=== PATIENT | male | born 1940 | race Caucasian/White ===

== ENCOUNTER 2019-08-12 09:16 | Emergency (ER) | payer MEDICARE, OTHER, SELFPAY ==
[2019-08-12 09:26] VITALS: BP 82/59; PULSE 70; RESP 22; TEMP 36.6; O2SAT 96
--- NOTE | 2019-08-12 09:55 | ED.GENADUL_ITS ---
Discharge Plan Disposition Patient Disposition: HOME Condition: Stable Discharge Details Chief Complaint: Sorethroat Clinical Impression: Viral syndrome, Sore throat Primary Care Provider: Padmini Pizarro ED Provider: Jennifer Glaser Home Meds and New Rx's Prescriptions: No Action multivitamin Tablet 1 tab PO DAILY RF: 0 atorvastatin 40 mg Tablet 40 mg PO DAILY RF: 0 ibuprofen 800 mg Tablet 800 mg PO TID RF: 0 isosorbide mononitrate 30 mg Tablet Extended Release 24 Hr 30 mg PO DAILY RF: 0 aspirin [Aspir-81] 81 mg Tablet,Delayed Release (Dr/Ec) 81 mg PO DAILY RF: 0 acetaminophen [Tylenol Extra Strength] 500 mg Tablet 1,000 mg PO TID RF: 0 tamsulosin 0.4 mg Capsule 0.8 mg PO DAILY RF: 0 gabapentin 800 mg Tablet 800 mg PO TID RF: 0 Flovent HFA 44 mcg/actuation Hfa Aerosol Inhaler 2 puff INHALATION BID RF: 0 nitroglycerin 0.4 mg Tablet, Sublingual 1.2 mg sublingual PRN PRNRF: 0 furosemide 20 mg Tablet 20 mg PO PRN PRNRF: 0 finasteride 5 mg Tablet 5 mg PO PRN PRNRF: 0 clindamycin phosphate [Cleocin T] 1 % Lotion 1 applic TOPICAL BID RF: 0 sodium chloride [Saline Nasal] 0.65 % Aerosol,[place] 1 spray INTRANASAL PRN PRNRF: 0 bupropion HCl 150 mg Tablet Extended Release 24 Hr 150 mg PO DAILY RF: 0 omeprazole 20 mg Tablet,Delayed Release (Dr/Ec) 20 mg PO DAILY RF: 0 prednisone 20 mg Tablet 40 mg PO DAILY RF: 0 benzonatate [Tessalon Perles] 100 mg Capsule 100 mg PO TID RF: 0 doxycycline hyclate 100 mg Tablet 100 mg PO BID RF: 0 Discharge Instructions Instructions: Pharyngitis (ED), Viral Syndrome (ED) Additional Instructions: Alternate Tylenol and Motrin as needed and directed for pain. Gargle with salt water multiple times daily. You can also try Sucrets throat lozenges or Chloraseptic throat spray to help with pain. Follow-up with your primary care doctor next week for reevaluation. Return to the emergency department if you develop any worsening or new concerning symptoms. Discharge Data Discharge Date/Time-TO BE ENTERED AT DEPARTURE: 08/12/19 12:28 Discharge Physician: Jennifer Glaser Medical Decision Making 78yo M w/ a h/o CAD, HTN, HLD, CABG, coronary stents presents with sore throat since this morning. Pt has had a chronic cough and occasional chronic chest pain and shortness of breath for the past 4 weeks after diagnosed with pneumonia 4 weeks ago. States he has had pneumonia symptoms for the past month but states they are improving other than the chronic cough, cp and sob. Pt states I just need a pill for my sore throat and then I can be on my way. Posterior oropharynx moderately erythematous. No exudates, peritonsillar mass, trismus, drooling, lymphadenopathy or submandibular swelling. Lungs clear. Rapid strep negative. Differential diagnosis includes viral process, allergies, postnasal drip, pneumonia. Will obtain a.m. influenza swab, chest x-ray and give a neb treatment and reassess. Patient appears nontoxic and I do not see an indication for lab work at this time. Rapid influenza and chest x-ray negative. Patient feels better after neb treatment. Discussed with patient that his symptoms could be viral in nature. Will give a dose of Decadron to help with sore throat pain over the next few days. He is advised to increase his fluids, get plenty of rest. Advised to follow up with the primary care doctor for re-evaluation. Usual and customary return precautions given prior to discharge. Imaging Data Radiologic Study: Radiologist's impression: XR CHEST 2V PA LATERAL CLINICAL HISTORY: cough, cp, sob, recent pneumonia, r/o acute dz TECHNIQUE: COMPARISON: No exams were available for comparison FINDINGS: There are multiple sternal sutures. Cardiac size is within normal limits. Lungs are clear and well expanded. No pleural effusion seen. IMPRESSION: No evidence of acute process. HPI General Mode of arrival: ambulatory . Date/Time Provider Initiated Documentation: 08/12/19 09:20 . Limitations to Documentation: no limitations . Information obtained by: patient . History of Present Illness 78 year old M presents to the emergency department with the chief complaint of sore throat , described as moderate, Quality is described as aching, Patient reports no radiation. Patient started experiencing this hour(s) (Since this morning) and it has been constant. No relieving factors improve symptom(s), No exacerbating factors reported . Patient notes cough (chronic for 4 weeks) and shortness of breath (chronic and intermittent for 4 weeks); denies diaphoresis, fever/chills, headaches, loss of appetite, malaise, nausea/vomiting, rash, seizure, syncope and weakness. Patient did receive the following treatments prior to arrival, other (Sore throat lozenges) Related Data Home Medications Medication Instructions Recorded Confirmed acetaminophen [Tylenol Extra 1,000 mg PO TID 08/12/19 08/12/19 Strength] aspirin [Aspir-81] 81 mg PO DAILY 08/12/19 08/12/19 atorvastatin 40 mg PO DAILY 08/12/19 08/12/19 benzonatate [Tessalon Perles] 100 mg PO TID 08/12/19 08/12/19 bupropion HCl 150 mg PO DAILY 08/12/19 08/12/19 clindamycin phosphate [Cleocin T] 1 applic TOPICAL BID 08/12/19 08/12/19 doxycycline hyclate 100 mg PO BID 08/12/19 08/12/19 finasteride 5 mg PO PRN PRN 08/12/19 08/12/19 fluticasone propionate [Flovent 2 puff INHALATION BID 08/12/19 08/12/19 HFA] furosemide 20 mg PO PRN PRN 08/12/19 08/12/19 gabapentin 800 mg PO TID 08/12/19 08/12/19 ibuprofen 800 mg PO TID 08/12/19 08/12/19 isosorbide mononitrate 30 mg PO DAILY 08/12/19 08/12/19 multivitamin 1 tab PO DAILY 08/12/19 08/12/19 nitroglycerin 1.2 mg SUBLINGUAL PRN PRN 08/12/19 08/12/19 omeprazole 20 mg PO DAILY 08/12/19 08/12/19 prednisone 40 mg PO DAILY 08/12/19 08/12/19 sodium chloride [Saline Nasal] 1 spray INTRANASAL PRN PRN 08/12/19 08/12/19 tamsulosin 0.8 mg PO DAILY 08/12/19 08/12/19 Allergies Allergy/AdvReac Type Severity Reaction Status Date / Time atorvastatin Allergy Other (See Unverified 08/12/19 10:52 Comment) codeine Allergy Nausea Unverified 08/12/19 10:50 diazepam [From Valium] Allergy Other (See Unverified 08/12/19 10:51 Comment) metoprolol Allergy Other (See Unverified 08/12/19 10:52 Comment) niacin Allergy Skin Rash Unverified 08/12/19 10:52 [From Niaspan Extended-Release] General Stated Complaint: Sorethroat FATOUMATA: 3 Review of Systems All systems reviewed & are unremarkable except as noted in HPI and below Constitutional Constitutional: Reports as per HPI, Denies chills and Denies fever(s) Eyes Eyes: Denies blurry vision ENT Ears, Nose, Mouth, and Throat: Denies dizziness, Reports sore throat and Denies throat swelling Cardiovascular Cardiovascular: Denies chest pain and Reports dyspnea Respiratory Respiratory: Reports cough and Reports dyspnea Gastrointestinal Gastrointestinal: Denies abdominal pain, Denies diarrhea and Denies vomiting Genitourinary Genitourinary: Denies hematuria and Denies dysuria Musculoskeletal Musculoskeletal: Denies back pain and Denies numbness Integumentary/Breasts Skin/Breast: Denies lesions and Denies rash Neurologic Neurologic: Denies dizziness, Denies focal weakness and Denies numbness Allergic/Immunologic Allergic/Immunologic: Denies throat swelling [facility] Medical History Coronary artery disease (Chronic) HTN (hypertension) (Chronic) Hx of hyperlipidemia (Acute) Surgical History History of coronary artery stent placement (Chronic) History of heart bypass surgery (Acute) Social History Smoking/Tobacco Use Status: Never Alcohol Intake: current Drug use: Never Do you feel safe at home: Yes Exam Const General: cooperative and no acute distress Orientation: alert, awake and oriented x3 HENMT Head: normal to inspection Ears: hearing grossly normal bilaterally, external ears normal and TM's normal bilaterally General nose exam: external nose normal Face and sinus: normal facial exam Mouth: oral mucosae normal Teeth and gingiva: dentition normal Throat: uvula midline, no peritonsillar masses and posterior oropharynx abnormal erythema (minimal posterior pharyngeal); no edema and no exudates Eyes General: appearance normal, both eyes and all related structures Eyelids: eyelids normal EOM: EOM intact bilaterally Neck Neck: normal visual inspection Lymphatic: no lymphadenopathy noted Chest Chest: normal inspection of the chest Resp Effort & Inspection: normal respiratory effort and able to speak in complete sentences Auscultation: clear to auscultation bilaterally Cardio Rate: regular rate Rhythm: regular rhythm GI Inspection: normal to inspection Palpation: soft, not firm, no guarding, no hepatosplenomegaly, no masses and nontender Auscultation: normal bowel sounds Skin General skin exam: no rashes or lesions noted Neuro General: alert and awake Cognition: normal cognition Speech: speech normal Gait: normal gait Motor: muscle tone normal throughout Sensory Exam: no sensory deficits noted Extrem General: normal to inspection, full ROM and normal capillary refill Psych Appearance: grossly normal Mental Status: mental status grossly normal Speech and Movement: speech and movement normal Affect: normal affect Thought Process: normal Course Vital Signs Vital signs: Vital Signs Temperature 97.9 F 08/12/19 09:26 Pulse 70 08/12/19 09:26 Respiratory Rate 22 08/12/19 09:26 Blood Pressure 82/59 L 08/12/19 09:26 Pulse Oximetry 96 08/12/19 09:26 Temperature 97.9 F 08/12/19 09:26 Temperature Source Skin 08/12/19 09:26 Pulse 70 08/12/19 09:26 Respiratory Rate 22 08/12/19 09:26 Respiratory Effort 08/12/19 09:28 Blood Pressure 82/59 L 08/12/19 09:26 Pulse Oximetry 96 08/12/19 09:26 Oxygen Delivery Method Room Air 08/12/19 09:26 Oxygen Flow Rate 0 08/12/19 09:26 Pain Level 8 08/12/19 09:26
[2019-08-12] MEDS: Albuterol/Ipratropium 3 ML UPD VIAL UPD (10:08)
--- NOTE | 2019-08-12 10:47 | DI.RAD_ITS ---
EXAM: XR CHEST 2V PA LATERAL CLINICAL HISTORY: cough, cp, sob, recent pneumonia, r/o acute dz TECHNIQUE: COMPARISON: No exams were available for comparison FINDINGS: There are multiple sternal sutures. Cardiac size is within normal limits. Lungs are clear and well expanded. No pleural effusion seen. IMPRESSION: No evidence of acute process.
[2019-08-12 11:07] VITALS: BP 130/55
[2019-08-12] MEDS: Dexamethasone 10 MG/ML VIAL PO (12:09)
[2019-08-12 12:12] VITALS: BP 130/55
== END 2019-08-12 12:28 | disposition home or self-care (01) ==
PROVIDERS: Emergency Provider Physician Assistant; PCP Internal Medicine
DX: J02.8 Acute pharyngitis due to other specified organisms (principal); R05 Cough; R06.02 Shortness of breath; B34.9 Viral infection, unspecified; I10 Essential (primary) hypertension
CPT/HCPCS: 87449; 87880; 94640; 96374; 99284; 71046; 87081; 99285; J1100; J7620